=== PATIENT | female | born 1960 | race Caucasian/White ===

== ENCOUNTER 2017-03-05 12:21 | Emergency (ER) | payer BC ==
[2017-03-05] MEDS ORDERED: KETOROLAC TROMETHAMINE 60 MG/2 ML VIAL IM ONE ×2 (12:56→13:04)
[2017-03-05 13:27] LABS: ALT 20 U/L (19-67); AST 14 U/L (0-48); Albumin * 3.7 gm/dl (3.4-5.0); Alkaline Phosphatase * 114 U/L (50-170); Amylase * 37 U/L (25-115); Anion Gap 12.7 mmol/L (6.8-13.8); BUN/Creatinine Ratio 13.9 (9.0-21.6); Bilirubin, Total 0.2 mg/dL (0.0-1.1); Blood Urea Nitrogen 11 mg/dL (3-23); Ca. Corrected For Albumin 8.8 mg/dL (8.4-10.2); Calcium * 8.9 mg/dL (7.9-10.9); Carbon Dioxide 29.4 mmol/L (24-32.6); Chloride 103 mmol/L (97-106); Glucose * 122 mg/dL (70-110); Lipase 85 U/L (73-393); Potassium 4.1 mmol/L (3.4-4.6); Sodium 141 mmol/L (132-142); Total Protein 7.8 gm/dL (6.2-8.2); Troponin I Less than 0.017 ng/ml (0.00-0.10)
[2017-03-05 13:40] LABS: Urine Appearance Clear; Urine Color Yellow
[2017-03-05 13:41] LABS: Urine Bacteria None Seen; Urine Bilirubin Negative (NEGATIVE); Urine Blood Negative /ul (NEGATIVE); Urine Ketone Negative (NEGATIVE); Urine Nitrite Negative (NEGATIVE); Urine Protein Negative (NEGATIVE); Urine RBC None Seen /hpf (0-5); Urine Urobilinogen Normal (NORMAL); Urine WBC 0-5 /hpf (0-5); Urine pH 7.5 pH (5.0-7.0)
--- NOTE | 2017-03-05 14:22 | ERNOTE ---
Back Pain ER HPI Date of Service: 03/05/17 Presenting Symptoms: injury/pain to back Time Seen by Provider: 03/05/17 12:40 Source: patient Exam Limitations: no limitations Immunizations: IMMUNIZATION HX Immunizations Up to Date Yes History of Influenza Vaccine Yes Hx Pneumococcal Vaccination No Allergies/Adverse Reactions: Allergies dicyclomine HCl [From Bentyl] Allergy (Intermediate, Verified 03/05/17 12:39) SHALLOW BREATHING codeine phosphate [From Codeine Phosphate Soluble] Adverse Reaction (Mild, Verified 03/05/17 12:39) Nausea enalapril [Enalapril] Adverse Reaction (Mild, Verified 03/05/17 12:39) FATIGUE, EXHAUSTION hydrochlorothiazide Adverse Reaction (Mild, Verified 03/05/17 12:39) VOICE LOSS Home Medications: HOME MEDICATIONS Losartan Potassium [Cozaar] 100 mg PO DAILY 07/20/13 [Last Taken 09/03/14] Nortriptyline HCl [Pamelor] 50 mg PO HS 07/20/13 [Last Taken 09/03/14] Gabapentin [Neurontin] 600 mg PO TID 03/05/14 [Last Taken 09/03/14] Metoprolol Succinate [Toprol Xl] 25 mg PO DAILY 03/05/14 [Last Taken 09/03/14] 5-Hydroxytryptophan (5-Htp) [5-Htp] 50 mg PO DAILY 08/28/14 [Last Taken Unknown] Calcium Carb/Vit B Comp/Folic [Complex B-50 Tablet] 1 each PO DAILY 08/28/14 [ Last Taken 09/03/14] Cholecalciferol (Vitamin D3) [Vitamin D3] 1,000 unit PO DAILY 08/28/14 [Last Taken Unknown] L. Acidophilus/Pectin, Grand [Acidophilus Probiotic Capsule] 1 each PO DAILY [Last Taken Unknown] Magnesium 250 mg PO DAILY 08/28/14 [Last Taken Unknown] Multivitamins [Multivitamin Janice] 1 cap PO DAILY 08/28/14 [Last Taken Unknown] Multivits Min/Iron/FA/Herb#186 [Hair, Skin & Nails Caplet] 1 each PO DAILY 08/28 [Last Taken Unknown] Polyethylene Glycol 3350 [Miralax] 17 gm PO BID 08/28/14 [Last Taken Unknown] amLODIPine BESYLATE [Norvasc] 10 mg PO DAILY 08/28/14 [Last Taken 09/03/14] clonazePAM [Klonopin] 1 mg PO TID PRN 08/28/14 [Last Taken Unknown] Phentermine HCl 11/14/14 [Last Taken Unknown] Topiramate 11/14/14 [Last Taken Unknown] traMADol HCL [Ultram] 50 mg PO QID #20 tablet 03/05/17 [Last Taken Unknown] Narrative: onset this am of chest wall and rib pain bilaterally worse with movement Timing: Reports: constant Quality/Severity: Reports: moderate Location of pain: Reports: mid back Activities at Onset: Reports: none Recent Injury?: Reports: no Possible Precipitating Factor: Reports: none Modifying Factors - (Improves): Reports: movement to right, movement to left, cough/deep breaths Modifying Factors - (Worsens): Reports: nothing Associated Symptoms: Reports: none Review of Systems - Review of Systems Constitutional: Present: no symptoms reported EYE: Present: no symptoms reported ENT: Present: no symptoms reported Respiratory: Present: no symptoms reported Cardiology: Present: no symptoms reported Gastrointestinal/Abdominal: Present: no symptoms reported Genitourinary: Present: no symptoms reported Musculoskeletal: Present: back pain, muscle pain, muscle stiffness Skin: Present: no symptoms reported Neurological: Present: no symptoms reported Endocrine: Present: no symptoms reported Hematologic/Lymphatic: Present: no symptoms reported Psych: Present: no symptoms reported All Other Systems: All systems neg except as marked - Patient's Past Medical History Patient History - Medical: No pertinent hx, Fibromyalgia Patient History - Cardiac/Respiratory: No pertinent hx, Hypertension, Sleep Apnea Patient History - Cancer: No Hx of Cancer Patient History - Surgical Procedures: Hysterectomy, T & A, Other, ENT Patient History - Other: None - Family History Family History:: no untoward family reactions to anesthesia, no familial bleeding tendencies, no family history of premature - Social History Living Situations: spouse Abuse History: No History of abuse Psych History: No pertinent hx Does anyone smoke in the home?: No Smoking Status: Never smoker Have you smoked in the past 12 months: No Do you dip or chew tobacco: No Alcohol Use: rarely Drug Use: none - Immunizations Immunizations Up to Date: Yes Hx Pneumococcal Vaccination: No History of Influenza Vaccine: Yes Physical Exam - Physical Exam General Appearance: Present: alert, mild distress Head Exam: Present: normal inspection, no evidence of injury Eye Exam: Normal inspection: bilateral, PERRL: bilateral, EOMI: bilateral Ears, Nose, Throat: Present: normal ENT inspection Neck: Present: normal inspection, nontender Respiratory: Present: no respiratory distress, normal breath sounds, no accessory muscle use, chest tenderness - reproducible pain pain mid axillary bilaterally Cardiovascular/Chest: Present: regular rate, rhythm, no murmur, normal peripheral pulses Peripheral Pulses: N=norm/S=strong/W=weak/B=bound/A=absent: Carotid (R): Normal , Carotid (L): Normal, Radial (R): Normal, Radial (L): Normal, Femoral (R): Normal, Femoral (L): Normal, Dorsalis-pedis (R): Normal, Dorsalis-pedis (L): Normal Gastrointestinal/Abdominal: Present: normal bowel sounds, nontender, nondistended, soft, no organomegaly Back Exam: Present: CVA tenderness (R), CVA tenderness (L), muscle spasm Extremity Exam: Present: normal inspection, non-tender, normal range of motion, no edema Neurological Exam: Present: alert, oriented, normal mood/affect, no motor/ sensory deficits DTR: N=norm/NB=norm/brisk/A=abs/DD=dull/dimin/HC=hyperactive: Bicep (R): Normal , Bicep (L): Normal, Tricep (R): Normal, Tricep (L): Normal, Knee (R): Normal, Knee (L): Normal, Ankle (R): Normal, Ankle (L): Normal Skin Exam: Present: normal color, warm/dry Lymphatic Exam: Present: no adenopathy ED Progress - Results and Orders Patient's Lab Results:: I have reviewed the patient's lab results. - Vital Signs Patient's Vital Signs:: I have reviewed the patient's vital signs. Vital Signs: Vital Signs 03/05/17 12:31 Temperature 36.7 C Pulse Rate 81 Respiratory 18 Rate Blood Pressure 184/94 O2 Sat by Pulse 100 Oximetry - Progress/Reassessment Chief Complaint: Back Pain Progress:: Improved - patient improved, discussed labs - Transfer of Care Expected Disposition: Discharge Departure Clinical Impression: Chest wall pain - Departure Disposition: Home self-care Condition: Fair Instructions: Chest Wall Pain Referrals: Janette Rendon DO [Primary Care Provider] - Prescriptions: traMADol HCL [Ultram] 50 mg PO QID #20 tablet
[2017-03-05 14:31] VITALS: BP 178/88
== END 2017-03-05 14:31 | disposition home or self-care (01) ==
LOC: ER 12:21
DX: R07.89 Other chest pain (principal)